=== PATIENT | male | born 1970 | race Caucasian/White ===

== ENCOUNTER 2016-07-29 18:17 | Emergency (ER) | payer OTHER ==
[~2016-07-29] VITALS: Ht 177.8 cm; Wt 91.0 kg
[~2016-07-29 18:17] MED LIST: HYDR-902 PO; NAPR-260 PO; TRAM50TA2 PO
[2016-07-29 19:04] VITALS: Ht 177.8 cm; Wt 91.0 kg
[2016-07-29] MEDS ORDERED: KETOROLAC 30 MG INJ IM STA (20:07)
--- NOTE | 2016-07-29 20:54 | ERD ---
ER Documentation Chief Complaint Date/Time DATE: 07/29/16 TIME: 20:50 Chief Complaint left shoulder pain HPI Patient is a 45-year-old male who presents to the ED with left shoulder pain. He states that he has had history of muscle strain and is following up with orthopedics regarding this issue. However he states that he was working and felt that he was going to fall and grabbed onto the rail and hurt his shoulder. States the pain is located on his left shoulder. Denies radiation of pain. Denies pain in his neck or elbow. He states that he has difficulty moving his shoulder. No fevers or chills. No chest pain, cough, shortness of breath or difficulty breathing. No other complaints. ROS All systems reviewed and are negative except as per history of present illness. Medications Home Meds Active Scripts Naproxen* (Naprosyn*) 500 Mg Tablet, 500 MG PO BID Y for PAIN AND/OR INFLAMMATION, #30 TAB Prov:YIMI LÓPEZ PA-C 07/29/16 Tramadol HCl (Tramadol HCl) 50 Mg Tablet, 50 MG PO Q4 Y for PAIN, #20 TAB Prov:FAREED METCALF PA-C 04/28/16 Naproxen* (Naprosyn*) 500 Mg Tablet, 500 MG PO BID Y for PAIN AND/OR INFLAMMATION, #30 TAB Prov:FAREED METCALF PA-C 04/28/16 Hydrocodone/Acetaminophen ([place] 10-325 Tablet) 1 Each Tablet, 1 TAB PO Q6H Y for PAIN, #30 TAB Prov:PRESTON SPICER PA-C 04/11/16 Allergies Allergies: Coded Allergies: gabapentin (Verified Allergy, Unknown, 04/11/16) PMhx/Soc History of Surgery: Yes (right arm) Anesthesia Reaction: No Hx Neurological Disorder: No Hx Respiratory Disorders: No Hx Cardiac Disorders: No Hx Psychiatric Problems: No Hx Miscellaneous Medical Probl: Yes (dm) Hx Alcohol Use: No Hx Substance Use: No Hx Tobacco Use: No Smoking Status: Never smoker Physical Exam Vitals Vital Signs Date Time Temp Pulse Resp B/P Pulse Ox O2 Delivery O2 Flow Rate FiO2 07/29/16 19:04 97.3 88 20 139/75 100 Physical Exam GENERAL: Well-developed, well-nourished male. Appears in no acute distress. HEAD: Normocephalic, atraumatic. EYES: Pupils are equally reactive bilaterally. EOMs grossly intact. No conjunctival erythema. ENT: Moist mucous membranes. No uvula deviation. No kissing tonsils. No exudates. NECK: Supple. No lymphadenopathy or thyromegaly. No meningismus. negative kernig. negative brudinski. Nontender to spine, no step-offs or deformities. Range of motion intact of neck. LUNG: Clear to auscultation bilaterally. No rhonchi, wheezing, rales or coarse breath sounds. HEART: Regular rate and rhythm. No murmurs, rubs or gallops. Extremities: Equal pulses bilaterally. No peripheral clubbing, cyanosis or edema. No unilateral leg swelling. Tenderness to medial aspect of left shoulder. Range of motion limited. No step-offs or deformities. No ecchymosis , erythema, laceration or open wounds. Radius ulnar and median nerve intact. Sensation intact. No wrist drop. No snuffbox tenderness. NEUROLOGIC: Alert and oriented. Moving all four extremities. 5/5 strength in all extremities. Normal speech. Steady gait. SKIN: Normal color. Warm and dry. No rashes or lesions. Capillary refill < 2 seconds Results 24 hrs Current Medications Medications (Trade) Dose Ordered Sig/Babak Route PRN Reason Start Time Stop Time Status Last Admin Dose Admin Ketorolac Tromethamine (Toradol) 30 mg ONCE STAT IM 07/29/16 20:07 07/29/16 20:08 DC 07/29/16 20:17 Procedures/MDM ER COURSE: I kept the patient and/or family informed of laboratory and diagnostic imaging results throughout the emergency room course. IMAGING STUDIES [place] [address] Radiology Main Line: [phone] DIAGNOSTIC IMAGING REPORT Patient: ANU CHAN : 1970 Age: 45 Sex: M MR #: [id number] DOS: 07/29/162006 Ordering MD: YIMI LÓPEZ PA-C Location: [facility] Room/Bed: PROCEDURE: XR shoulder. CLINICAL INDICATION: Pain TECHNIQUE: Three views of the left shoulder were performed. COMPARISON: None available. FINDINGS: There is normal mineralization and alignment. No fracture or osseous lesion is identified. The joint spaces are preserved. The soft tissues are unremarkable. RPTAT:HJJR IMPRESSION: Unremarkable left shoulder series. Physician Brayan Date Time Electronically viewed and signed by Perry Deshpande Physician on 07/29/2016 20:57 JR/ CC: YIMI LÓPEZ PA-C MEDICATIONS Toradol. Tolerated well with no adverse reaction. Seen improvement in symptoms. PROCEDURES ED sling. Neurovascularly intact post splint placement. MEDICAL DECISION MAKING: This is a 45-year-old male who presents with left shoulder pain. Vital signs were reviewed. Patient is afebrile. Patient is not hypoxic. Patient is not toxic or ill-appearing. Patient has shoulder pain of unknown etiology. Likely strain versus sprain. Low suspicion for dislocation, fracture, septic joint, compartment syndrome, osteomyelitis, cellulitis, avascular necrosis, neurological injury, vascular injury, tendon laceration. No pain above or below shoulder joint. DISCHARGE: At this time, patient is stable for discharge and outpatient management with no new complaints during the ER course. Patient was sent home with Anne Marie, to follow-up with orthopedics and a copy of x-ray report. Patient will be discharged home with instructions to recheck for new or worsening symptoms such as fever, nausea, weakness, LOC and to follow up with primary care in the next 1 -2 days. Patient was advised to return to the ER for any new or worsening symptoms. Plan was discussed and patient and/or family understands and agrees. Home instructions were given. Departure Diagnosis: Primary Impression: Shoulder pain Laterality: left Chronicity: chronic Qualified Code: M25.512 - Chronic left shoulder pain Condition: Stable YIMI LÓPEZ PA-C Jul 29, 2016 20:53
--- NOTE | 2016-07-29 20:57 | RADRPT ---
PROCEDURE: XR shoulder. CLINICAL INDICATION: Pain TECHNIQUE: Three views of the left shoulder were performed. COMPARISON: None available. FINDINGS: There is normal mineralization and alignment. No fracture or osseous lesion is identified. The joint spaces are preserved. The soft tissues are unremarkable. RPTAT:HJJR IMPRESSION: Unremarkable left shoulder series. Physician Brayan Date Time Electronically viewed and signed by Perry Deshpande Physician on 07/29/2016 20:57 JR/
[2016-07-29] MEDS ORDERED: NAPR-260 PO (20:59)
[2016-07-29 21:08] VITALS: BP 136/66; PULSE 77; RESP 20; TEMP 98.6
== END 2016-07-29 21:09 | disposition home or self-care (01) ==
LOC: FTE 18:17
DX: M25.512 Pain in left shoulder (principal); E11.9 Type 2 diabetes mellitus without complications
CPT/HCPCS: 73030; J1885; 96372